=== PATIENT | female | born 2000 | race Caucasian/White ===

== ENCOUNTER 2022-09-25 17:21 | Emergency (ER) | payer MEDICAID, SELFPAY ==
[2022-09-25 17:23] VITALS: BP 128/78; PULSE 78; RESP 16; TEMP 36.6; O2SAT 99; BMI 25.0
--- NOTE | 2022-09-25 18:43 | ED.VIS.GI ---
HPI HPI - GI History of Present Illness Chief Complaint: Abd Pain Informant: patient Abdominal Pain/Flank Pain Onset: Weeks (2) Context: Gradual Onset Timing: Intermittent and Lasts (Hours) Quality: Burning and Stabbing Location: RUQ and RLQ Worsened by: Food Relieved by: Nothing Nausea/Vomiting/Emesis GI Symptom: Positive for Nausea and Vomiting Quality: Negative for Blood streaks, Coffee ground or Hematemesis Diarrhea/Melena/Hematochezia GI Symptom: Negative for Diarrhea, Melena or Hematochezia Associated Symptoms Associated Symptoms: Negative for Dysuria, Frequency or Hematuria LMP: Current Narrative Narrative: Patient presents with abdominal pain that has been intermittent over the last 2 weeks. Patient states it is gradually getting worse. Patient states that it lasts for a few hours after it comes on. Patient describes the pain as burning and stabbing. Patient states the pain is over the right side of her abdomen. Patient states it is worse after eating. Patient states she usually gets worse shortly after eating. Patient admits to some nausea and vomiting. Patient denies any hematemesis or coffee-ground emesis. Patient denies any diarrhea, melena, or hematochezia. Patient admits to a decreased appetite. Patient also admits to feeling fatigued. Patient states she is currently on her menstrual period. Patient denies any urinary complaints. [facility] Medical History (Updated 09/25/22 @ 22:[address] Dmitry Singh DO) Endometriosis Home Medications omeprazole 20 mg capsule,delayed release 20 mg PO DAILY #30 CAPSULES 09/25/22 [Rx Last Taken Unknown] ondansetron 4 mg disintegrating tablet 4 mg PO Q8H PRN PRN Nausea #10 tabs 09/25/22 [Rx Last Taken Unknown] Allergy/AdvReac Type Severity Reaction Status Date / Time Penicillins [PCN] Allergy NEEDS Verified 09/25/22 17:22 FOLLOW-UP Surgical History (Updated 09/25/22 @ 18:[address] Dmitry Singh DO) Hx of laparoscopy Social History Smoking Status: Never smoker ROS ROS ED Constitutional Constitutional ED: Reports chills and subjective; Denies fever(s) Eyes Eyes: Denies blurry vision or change in vision ENT ENT ED: Denies rhinorrhea or sore throat Cardiovascular Cardiovascular: Denies chest pain or palpitations Respiratory/Chest Respiratory/Chest: Denies cough or dyspnea Gastrointestinal Gastrointestinal: Reports abdominal pain, nausea and vomiting; Denies diarrhea or melena Genitourinary Genitourinary ED: Denies dysuria or hematuria Musculoskeletal Musculoskeletal: Reports back pain; Denies neck pain Integumentary Denies abscess or rash Neurologic Neurologic: Denies headache(s) or weakness Allergic/Immunologic Allergic/Immunologic ED: Denies mouth swelling or urticaria EXAM Physical Exam Const Vital Signs: 09/25/22 17:23 Temperature 97.8 F Temperature Source Temporal Pulse Rate 78 Respiratory Rate 16 Blood Pressure 128/78 H Blood Pressure Mean 94 Pulse Ox 99 Oxygen Delivery Method Room Air Positive well nourished and well developed General Appearance ED: well developed HEENT Reports moist mucous membranes Neck supple and no JVD Resp normal respiratory effort and clear to auscultation bilaterally Cardio regular rate, regular rhythm and no murmurs GI normal to inspection, nondistended, normoactive bowel sounds Palpation: soft and tender RLQ and RUQ; Negative for guarding or rebound tenderness present Extremity normal to inspection General Extremety ED: Negative for edema or tenderness General Extremity: Negative for edema Neuro oriented x3, CN's II-XII intact bilaterally and no sensory deficits noted Sensorium / Orientation: alert Motor Exam: strength 5/5 throughout Psych mental status grossly normal Skin no rashes or lesions noted MDM MDM MDM Narrative Medical decision making narrative: Patient was given morphine and Zofran here. CBC was obtained and was reviewed. This was within normal limits. Comprehensive metabolic profile was obtained and was reviewed. Chloride is slightly elevated at 108. The remainder was within normal limits. Lipase was obtained and was negative. Serum hCG was obtained and was negative. Urinalysis was obtained and was reviewed. There is no evidence of urinary tract infection or hematuria. CT scan of the abdomen and pelvis was obtained with oral and IV contrast. On my interpretation, there were no gallstones noted. There is no evidence of bowel obstruction or perforation. Radiologist also interpreted the CT scan and did not find any acute intra abdominal abnormality. Patient was advised of her findings. Patient was feeling better on reevaluation. Patient was given prescriptions for Zofran and omeprazole. Patient was instructed to follow-up with her primary care physician in 5 to 7 days. Patient was advised that this could still be gallbladder disease or peptic ulcer disease. Patient was advised she may need further testing if her symptoms persist. Patient understands and is agreeable with the plan. All questions were answered. Lab Data Attestation: I reviewed the patient's lab results. Labs: Laboratory Results - last 24 hr 09/25/22 09/25/22 09/25/22 18:10 18:10 18:10 WBC 7.6 RBC 4.73 Hgb 14.5 Hct 42.8 MCV 90.5 MCH 30.7 MCHC 33.9 RDW Std Deviation 38.5 RDW Coeff of Ruddy 11.7 Plt Count 290 MPV 10.4 Immature Gran % (Auto) 0.400 Neut % (Auto) 62.5 Lymph % (Auto) 27.6 Yell % (Auto) 6.6 Eos % (Auto) 2.5 Baso % (Auto) 0.4 Absolute Neuts (auto) 4.7 Absolute Lymphs (auto) 2.09 Nucleated RBC % 0 Sodium 140 Potassium 3.9 Chloride 108 H Carbon Dioxide 27.0 Anion Gap 5 BUN 14 Creatinine 0.86 Estim Creat Clear Calc 93.90 Est GFR (MDRD) Af Amer 109 Est GFR (MDRD) Non-Af 90 BUN/Creatinine Ratio 16.4 Glucose 95 Calcium 8.3 L Total Bilirubin 0.40 AST 15 ALT 21 Alkaline Phosphatase 72 Total Protein 7.4 Albumin 4.0 Globulin 3.4 Albumin/Globulin Ratio 1.2 Lipase 120 Serum , Qual NEGATIVE Urine Color Urine Clarity Urine pH Ur Specific [place] Urine Protein Urine Glucose (UA) Urine Ketones Urine Occult Blood Urine Nitrite Urine Bilirubin Urine Urobilinogen Ur Leukocyte Esterase Urine RBC Urine WBC Ur Squamous Epith Cells Urine Bacteria Urine Mucus 09/25/22 19:45 WBC RBC Hgb Hct MCV MCH MCHC RDW Std Deviation RDW Coeff of Ruddy Plt Count MPV Immature Gran % (Auto) Neut % (Auto) Lymph % (Auto) Yell % (Auto) Eos % (Auto) Baso % (Auto) Absolute Neuts (auto) Absolute Lymphs (auto) Nucleated RBC % Sodium Potassium Chloride Carbon Dioxide Anion Gap BUN Creatinine Estim Creat Clear Calc Est GFR (MDRD) Af Amer Est GFR (MDRD) Non-Af BUN/Creatinine Ratio Glucose Calcium Total Bilirubin AST ALT Alkaline Phosphatase Total Protein Albumin Globulin Albumin/Globulin Ratio Lipase Serum , Qual Urine Color Yellow Urine Clarity Sl. Cloudy Urine pH 6.5 Ur Specific [place] 1.010 Urine Protein Negative Urine Glucose (UA) Normal Urine Ketones Negative Urine Occult Blood 10 H Urine Nitrite Negative Urine Bilirubin Negative Urine Urobilinogen Normal Ur Leukocyte Esterase Negative Urine RBC 0-5 SEEN Urine WBC 0 SEEN Ur Squamous Epith Cells 0-5 SEEN Urine Bacteria 0 SEEN Urine Mucus 0 SEEN Radiography Diagnostic Testing: Clinical Impression(s) from Imaging Studies Abdomen/Pelvis CT 09/25/22 18:48 IMPRESSION: Normal enhanced CT of the abdomen and pelvis. Electronically Signed: Ever Larsen MD at 21:22 EST , Discharge Plan Triage Chief Complaint: Abd Pain ED Provider: Dmitry Singh Dx/Rx/DC Orders Clinical Impression: Abdominal pain, Nausea and vomiting Instructions: ED Abdominal Pain Unkn Cause Fem Prescriptions: New omeprazole [omeprazole] 20 mg capsule,delayed release(DR/EC) 20 mg PO DAILY Qty: 30 0RF ondansetron [ondansetron] 4 mg tablet,disintegrating 4 mg PO Q8H PRN PRN (Reason: Nausea) Qty: 10 0RF Disposition Disposition: Home, Self Care
--- NOTE | 2022-09-25 18:48 | CT_ITS ---
STUDY: CT ABDOMEN AND PELVIS WITH CONTRAST REASON FOR EXAM: Female, 22 years old. Abdominal pain -- IV PO Contrast RADIATION DOSAGE (If Supplied By Facility): CTDIvol = ( 13.60 ) mGy, DLP = ( 733.68 ) mGycm TECHNIQUE: Transaxial images were obtained from the dome of the diaphragm to the symphysis pubis without oral contrast. Oral and amp; IV Gastrografin and amp; 100mL Isovue-370 was administered. Sagittal and coronal images were reconstructed. Individualized dose optimization techniques were used for this CT. COMPARISON: None. FINDINGS: The visualized lung bases are unremarkable. The visualized portions of the heart are within normal limits. Normal liver. Normal gallbladder and extrahepatic biliary system. Normal spleen. Normal pancreas. Normal bilateral adrenal glands. Normal right kidney. Normal left kidney. Normal visualized stomach. Small bowel fill with oral contrast. Normal colon. The appendix is visualized and appears normal. Normal abdominal aorta. Normal inferior vena cava. Normal retroperitoneum. Normal urinary bladder. IUD noted within the uterus. Normal abdominal wall. Normal osseous structures. CT/Abdomen/Pelvis WITH Contrast IMPRESSION: Normal enhanced CT of the abdomen and pelvis. Electronically Signed: Ever Larsen MD at 21:22 [facility] ,
[2022-09-25] MEDS: Morphine 4 MG/ML Syringe IV (19:02)
[2022-09-25] MEDS: Ondansetron 4 MG/2 ML Vial IV (19:02)
[2022-09-25 19:16] LABS: Absolute Lymphocyte Count 2.09 X10^3/uL (0.83-4.51); Absolute Neutrophil Count 4.7 X10^3/uL (2.0-7.7); Basophil# 0.03 X10^3/uL; Basophil% 0.4 % (0-1); Eosinophil# 0.19 X10^3/uL; Eosinophils% 2.5 % (0-5); Hematocrit 42.8 % (37-47); Hemoglobin 14.5 g/dL (12.0-15.0); Lymphocyte # 2.09 X10^3/ul (0.83-4.51); Lymphocyte % 27.6 % (19-41); Mean Corp Hgb Conc 33.9 g/dL (32-36); Mean Corpuscular Hgb 30.7 pg (27.0-32.0); Mean Corpuscular Volume 90.5 fL (81-99); Mean Platelet Vol. 10.4 fl (6.2-12.0); Monocyte% 6.6 % (0-10); NRBC Flagged by Analyzer 0 % (0-5); Neutrophil # 4.72 X10^3/uL (2.7-7.7); Neutrophil % 62.5 % (47-70); Platelet Count 290 K/mm3 (150-450); RBC Distribution Width CV 11.7 % (11.6-14.6); RBC Distribution Width SD 38.5 fl (35.1-43.9); Red Blood Count 4.73 M/mm3 (4.2-5.4); White Blood Count 7.6 K/mm3 (4.4-11.0)
[2022-09-25 19:36] LABS: ALB/GLOB Ratio 1.2 RATIO (0.9-2.4); AST(SGOT) 15 U/L (15-37); Alanine Aminotransfer ALT/SGPT 21 U/L (13-56); Alkaline Phosphatase 72 U/L (45-117); Anion Gap 5 (5-15); BUN 14 mg/dL (7-18); BUN/Creat Ratio 16.4 RATIO (10-20); Calcium,Total 8.3 mg/dL (8.5-10.1); Chloride 108 mmol/L (98-107); Creatinine, Serum 0.86 mg/dL (0.55-1.02); EST Glomerular Filtration Rate 90 mL/min (>60); Est Glom Filt Rate - Afr Amer 109 mL/min (>60); Globulin 3.4 g/dL (2.2-4.2); Glucose 95 mg/dL (74-106); Lipase 120 U/L (73-393); Potassium 3.9 mmol/L (3.5-5.1); Protein, Total 7.4 g/dL (6.4-8.2); Sodium Level 140 mmol/L (136-145)
[2022-09-25 19:38] LABS: Internal QC Validated? YES +Cl - CLEAR BKGD; Pregnancy, Serum, hCG Quali. NEGATIVE Negative
[2022-09-25 19:55] LABS: Bacteria 0 SEEN /hpf (None Seen); Mucous, Urine 0 SEEN /hpf (<or=2+); White Blood Cells 0 SEEN /hpf (0-5)
[2022-09-25 20:01] LABS: Color, Urine Yellow (Yellow); Glucose, Dipstick Normal (Normal); Ketone-Dipstick Negative (Negative); Leukocyte Esterase-Dipstick Negative /ul (Negative); Nitrite-Dipstick Negative (Negative); Occult Blood-Urine 10 /ul (Negative); Protein-Dipstick Negative (Negative); Urine Bilirubin Dipstick Negative (Negative); Urine Clarity Sl. Cloudy (Clear); Urine Urobilinogen Normal (Normal); Urine pH 6.5 (5.0 - 8.0)
[2022-09-25 20:08] LABS: Red Blood Cells-Urine 0-5 SEEN /hpf (0-5); Squamous Epithelial Cells - UA 0-5 SEEN /hpf (5-10)
== END 2022-09-25 22:08 | disposition home or self-care (01) ==
PROVIDERS: Emergency Provider Emergency Medicine; Visit Provider Emergency Medicine
DX: R11.2 Nausea with vomiting, unspecified (principal); R10.9 Unspecified abdominal pain
CPT/HCPCS: 74177; 80053; 81001; 83690; 84703; 85025; 96374; 96375; 99283; J7030; Q9967; A4216; J2405

== ENCOUNTER → 2022-10-11 | Outpatient (CLI) | payer MEDICAID, SELFPAY ==
--- NOTE | 2022-10-11 07:42 | US_ITS ---
STUDY: ABDOMINAL ULTRASOUND - RIGHT UPPER QUADRANT REASON FOR VISIT: Female, 22 years old RUQ PAIN TECHNIQUE: Ultrasound evaluation of the right upper quadrant was performed with real-time and static toscano-scale imaging. TECHNICAL QUALITY: Adequate. COMPARISON: Comparison is made with prior CT scan of the abdomen and pelvis dated 09/25/2022. FINDINGS: Liver: The liver measures 15.6 cm. There is increased echogenicity consistent with a mild degree of fatty infiltration. The bile ducts are within normal limits. There is hepatic color flow. The direction of portal flow is hepatopetal. There is no demonstrated mass lesion. Gallbladder: Normal distended gallbladder. The gallbladder wall measures 1.7 mm. There is a negative sonographic Mccann''s sign. There is no pericholecystic fluid. There are no gallstones. Common Bile Duct (C.B.D.): The common bile duct measures 4.8 mm. Pancreas: Normal size of the head, body and tail of the pancreas. There is normal echogenicity of the pancreas. There is no demonstrated pancreatic mass or cyst. Right Kidney: Normal size of the right kidney. The right kidney measures 10 cm x 6.1 cm x 3.9 cm. Normal renal cortex. The right cortex measures 1.7 cm. There is no demonstrated renal mass or cyst. There is no right hydronephrosis. US/Abdomen Limited IMPRESSION: Mild degree of fatty infiltration of the liver. Electronically Signed: Jamal Mota MD at 15:18 EST ,
== END | disposition home or self-care (01) ==
LOC: US 07:40
DX: K76.0 Fatty (change of) liver, not elsewhere classified (principal); R10.11 Right upper quadrant pain; R10.811 Right upper quadrant abdominal tenderness; K21.9 Gastro-esophageal reflux disease without esophagitis; R10.816 Epigastric abdominal tenderness
CPT/HCPCS: 76705

== ENCOUNTER 2023-08-25 06:27 | Emergency (ER) | payer SELFPAY ==
[2023-08-25 06:32] VITALS: BP 131/83; PULSE 94; RESP 18; TEMP 36.4; O2SAT 99; BMI 30.2
[2023-08-25 07:02] LABS: Bacteria 0 SEEN /hpf (None Seen); Mucous, Urine 0 SEEN /hpf (<or=2+); Red Blood Cells-Urine 0 SEEN /hpf (0-5); Squamous Epithelial Cells - UA 0 SEEN /hpf (5-10); White Blood Cells 0 SEEN /hpf (0-5)
[2023-08-25 07:03] LABS: Absolute Lymphocyte Count 0.55 X10^3/uL (0.83-4.51); Absolute Neutrophil Count 10.2 X10^3/uL (2.0-7.7); Basophil# 0.03 X10^3/uL; Basophil% 0.3 % (0-1); Eosinophil# 0.17 X10^3/uL; Eosinophils% 1.5 % (0-5); Hematocrit 42.8 % (37-47); Hemoglobin 14.5 g/dL (12.0-15.0); Lymphocyte # 0.55 X10^3/ul (0.83-4.51); Lymphocyte % 4.7 % (19-41); Mean Corp Hgb Conc 33.9 g/dL (32-36); Mean Corpuscular Hgb 30.7 pg (27.0-32.0); Mean Corpuscular Volume 90.5 fL (81-99); Mean Platelet Vol. 9.4 fl (6.2-12.0); Monocyte# 0.64 X10^3/uL; Monocyte% 5.5 % (0-10); NRBC Flagged by Analyzer 0 % (0-5); Neutrophil # 10.19 X10^3/uL (2.7-7.7); Neutrophil % 87.6 % (47-70); POSITIVE DIFFERENTIAL YES; Platelet Count 259 K/mm3 (150-450); RBC Distribution Width CV 11.5 % (11.6-14.6); Red Blood Count 4.73 M/mm3 (4.2-5.4); White Blood Count 11.6 K/mm3 (4.4-11.0)
--- NOTE | 2023-08-25 07:07 | EX.ED.DYSGE1 ---
HPI History of Present Illness Chief Complaint: Nausea/Vomiting/Diarrhea Detail of Chief Complaint: Abdominal pain, vomiting, diarrhea Informant: patient Narrative Narrative: Patient presents to the emergency department with complaint of abdominal pain that started initially yesterday and was mild before bed. She woke up around 1 AM and felt nauseated and started vomiting. She thinks she threw up more than 10 times. She has had about 4-5 episodes of watery stool as well. Describes diffuse abdominal discomfort as well. She denies sick contacts. Patient has an IUD and does not think she is . She denies dysuria. She has had no fevers. [facility] Medical History (Updated 08/25/23 @ 07:[address] Franklin Tristan DO) Endometriosis Home Medications omeprazole 20 mg capsule,delayed release 20 mg PO DAILY #30 CAPSULES 09/25/22 [Rx Last Taken Unknown] ondansetron 4 mg disintegrating tablet 4 mg PO Q8H PRN PRN Nausea #10 tabs 09/25/22 [Rx Last Taken Unknown] dicyclomine 10 mg capsule 20 mg (2 x 10 mg) PO TIDAC #20 CAPSULES 08/25/23 [Rx Last Taken Unknown] ondansetron 4 mg disintegrating tablet 4 mg PO Q8H PRN PRN Nausea #10 tabs 08/25/23 [Rx Last Taken Unknown] Allergy/AdvReac Type Severity Reaction Status Date / Time Penicillins [PCN] Allergy NEEDS Verified 08/25/23 06:31 FOLLOW-UP Surgical History (Updated 09/25/22 @ 18:[address] Dmitry Singh DO) Hx of laparoscopy Social History Smoking Status: Never smoker ROS ROS ED Review of Systems ROS Unobtainable: other Constitutional Constitutional ED: Reports lethargy; Denies chills, fever(s), sweats or weight loss Eyes Eyes: Denies blurry vision, change in vision or diplopia ENT ENT ED: Denies rhinorrhea or sore throat Cardiovascular Cardiovascular: Denies chest pain, orthopnea or racing heartbeat Respiratory/Chest Respiratory/Chest: Denies cough, dyspnea, dyspnea on exertion, orthopnea or sputum Gastrointestinal Gastrointestinal: Reports abdominal pain, diarrhea, nausea and vomiting Genitourinary Genitourinary ED: Denies dysuria, hematuria or urinary frequency Musculoskeletal Musculoskeletal: Denies arthralgias, back pain, myalgias or neck pain Integumentary Denies abscess, Abrasions or rash Neurologic Neurologic: Denies headache(s) or weakness Psychiatric Psychiatric: Denies anxiety, depression or suicidal thoughts Endocrine Endocrinology: Denies polydipsia, polyphagia or polyuria Hematologic/Lymphatic Hematologic/Lymphatic: Denies easy bleeding, easy bruising or lymphadenopathy Allergic/Immunologic Allergic/Immunologic ED: Denies mouth swelling, tongue swelling or urticaria EXAM Physical Exam Const Vital Signs: 08/25/23 06:32 08/25/23 07:52 Temperature 97.5 F L Temperature Source Temporal Pulse Rate 94 68 Respiratory Rate 18 15 Blood Pressure 131/83 H 132/74 H Blood Pressure Mean 99 93 Pulse Ox 99 99 Oxygen Delivery Method Room Air Positive well nourished and well developed General Appearance ED: well developed and NAD HEENT Reports TM's clear and moist mucous membranes normocephalic and atraumatic; Negative for trauma or tenderness Tympanic Membrane ED: Yes TM's clear Eyes PERRL and EOMs intact bilaterally General Eye ED: Negative for pale conjunctiva or scleral icterus Neck no lymphadenopathy, supple and no JVD General: Negative for tenderness Chest Wall inspection of chest normal and palpation of chest normal Chest: Negative for tenderness Resp normal respiratory effort and clear to auscultation bilaterally Effort and Inspection: Negative for respiratory distress or pain with movement Auscultation: Negative for rhonchi, wheezes or diminished lung sounds Cardio regular rate, regular rhythm, S1 normal heart sound, S2 normal heart sound and no murmurs Peripheral Pulses: pulses 2+ throughout GI normal to inspection, nondistended, normoactive bowel sounds, soft to palpation, non-distended and no masses GI Narrative: Mild diffuse tenderness throughout but mostly left lower quadrant. No significant guarding. There is no rebound, rigidity, or pineal signs. No mass palpated. Back/Spine no CVA tenderness and no thoracic nor lumbar tenderness Extremity normal to inspection General Extremety ED: Negative for edema General Extremity: Negative for edema Neuro oriented x3, CN's II-XII intact bilaterally, no sensory deficits noted and gait normal Sensorium / Orientation: awake, alert, oriented to person, oriented to place and oriented to time Motor Exam: strength 5/5 throughout and strength abnormal Psych mental status grossly normal Skin no rashes or lesions noted and no wounds MDM MDM MDM Narrative Medical decision making narrative: Patient with rather sudden onset of vomiting and diarrhea. Clinically looks well. Abdominal exam benign and nonacute. Suspected viral gastroenteritis. IV line established on arrival. Patient was medicated with Zofran and Bentyl. She was given a liter normal same fluid bolus. After treatment she felt markedly improved. CBC with differential count 11.6 with hemoglobin 14 and platelet count of 259. Chemistries unremarkable. Glucose slightly elevated at 131. LFTs were normal. hCG was negative and urinalysis was negative for infection. At this point I suspect likely viral gastroenteritis. Recommended symptomatic care. Advised her to push fluids. Will write her prescription for Zofran and Bentyl. Advised to follow-up with primary care physician within the next 3 to 5-day. Patient to return if worsening pain, fever, persistent vomiting and diarrhea, dehydration, or condition should worsen anyway. Lab Data Attestation: I reviewed the patient's lab results. Labs: Laboratory Results - last 24 hr 08/25/23 06:55 WBC 11.6 H RBC 4.73 Hgb 14.5 Hct 42.8 MCV 90.5 MCH 30.7 MCHC 33.9 RDW Std Deviation 38.0 RDW Coeff of Ruddy 11.5 L Plt Count 259 MPV 9.4 Immature Gran % (Auto) 0.400 Neut % (Auto) 87.6 H Lymph % (Auto) 4.7 L [place] % (Auto) 5.5 Eos % (Auto) 1.5 Baso % (Auto) 0.3 Absolute Neuts (auto) 10.2 H Absolute Lymphs (auto) 0.55 L Nucleated RBC % 0 Differential Comment SCANNED Sodium 138 Potassium 4.0 Chloride 106 Carbon Dioxide 27.0 Anion Gap 5 BUN 15 Creatinine 0.82 Estim Creat Clear Calc 98.48 Est GFR (MDRD) Af Amer 114 Est GFR (MDRD) Non-Af 94 BUN/Creatinine Ratio 18.4 Glucose 131 H Calcium 8.2 L Total Bilirubin 0.70 AST 17 ALT 20 Alkaline Phosphatase 64 Total Protein 7.0 Albumin 3.9 Globulin 3.1 Albumin/Globulin Ratio 1.3 Serum , Qual NEGATIVE Urine Color Yellow Urine Clarity Clear Urine pH 7.0 Ur Specific [place] 1.010 Urine Protein Negative Urine Glucose (UA) Normal Urine Ketones Negative Urine Occult Blood Negative Urine Nitrite Negative Urine Bilirubin Negative Urine Urobilinogen Normal Ur Leukocyte Esterase Negative Urine RBC 0 SEEN Urine WBC 0 SEEN Ur Squamous Epith Cells 0 SEEN Urine Bacteria 0 SEEN Urine Mucus 0 SEEN Discharge Plan Triage Chief Complaint: Nausea/Vomiting/Diarrhea ED Provider: Franklin Tristan Dx/Rx/DC Orders Clinical Impression: Viral gastroenteritis Instructions: ED Gastroenteritis, Viral (Adult) Prescriptions: New ondansetron [ondansetron] 4 mg tablet,disintegrating 4 mg PO Q8H PRN PRN (Reason: Nausea) Qty: 10 0RF dicyclomine 10 mg capsule 20 mg PO TIDAC Qty: 20 0RF No Action omeprazole [omeprazole] 20 mg capsule,delayed release(DR/EC) 20 mg PO DAILY Qty: 30 0RF ondansetron [ondansetron] 4 mg tablet,disintegrating 4 mg PO Q8H PRN PRN (Reason: Nausea) Qty: 10 0RF Primary Care Provider: Care Physician,No Primary Referrals: Care Physician,No Primary [Primary Care Provider] - Activity Restrictions/Additional Instructions: Follow-up with your primary care physician within the next 3 to 5 days. Disposition Disposition: Home, Self Care Discharge Date/Time: 08/25/23 07:54
[2023-08-25 07:15] LABS: Internal QC Validated? YES +Cl - CLEAR BKGD; Pregnancy, Serum, hCG Quali. NEGATIVE Negative
[2023-08-25] MEDS: Dicyclomine 20 MG/2 ML Vial IM (07:15)
[2023-08-25] MEDS: Ondansetron 4 MG/2 ML Vial IV (07:15)
[2023-08-25] MEDS: 0.9% Normal Saline (1000mL) 1,000 ML 1000 ML IV (07:15)
[2023-08-25 07:16] LABS: Differential Indicated SCAN CRITERIA MET
[2023-08-25 07:19] LABS: Color, Urine Yellow (Yellow); Glucose, Dipstick Normal (Normal); Ketone-Dipstick Negative (Negative); Leukocyte Esterase-Dipstick Negative /ul (Negative); Nitrite-Dipstick Negative (Negative); Occult Blood-Urine Negative /ul (Negative); Protein-Dipstick Negative (Negative); Urine Bilirubin Dipstick Negative (Negative); Urine Clarity Clear (Clear); Urine Urobilinogen Normal (Normal)
[2023-08-25 07:21] LABS: ALB/GLOB Ratio 1.3 RATIO (0.9-2.4); AST(SGOT) 17 U/L (15-37); Alanine Aminotransfer ALT/SGPT 20 U/L (13-56); Albumin, Serum 3.9 g/dL (3.2-5.0); Alkaline Phosphatase 64 U/L (45-117); Anion Gap 5 (5-15); BUN 15 mg/dL (7-18); BUN/Creat Ratio 18.4 RATIO (10-20); Calcium,Total 8.2 mg/dL (8.5-10.1); Chloride 106 mmol/L (98-107); Creatinine, Serum 0.82 mg/dL (0.55-1.02); EST Glomerular Filtration Rate 94 mL/min (>60); Est Glom Filt Rate - Afr Amer 114 mL/min (>60); Estimated Creatinine Clearance 98.48 ml/min; Globulin 3.1 g/dL (2.2-4.2); Glucose 131 mg/dL (74-106); Sodium Level 138 mmol/L (136-145)
[2023-08-25 07:52] VITALS: BP 132/74; PULSE 68; RESP 15; O2SAT 99
[2023-08-25 08:22] LABS: Differential Comment SCANNED
== END 2023-08-25 07:54 | disposition home or self-care (01) ==
PROVIDERS: Emergency Provider Emergency Medicine; Visit Provider Emergency Medicine
DX: A08.4 Viral intestinal infection, unspecified (principal)
CPT/HCPCS: 96360; 80053; 81001; 84703; 85025; 96361; 96372; 96374; 99282; J7030; A4216; J2405